=== PATIENT | female | born 1960 | race Caucasian/White ===

== ENCOUNTER → 2017-03-06 | Outpatient (CLI) | payer MEDICARE ==
[~2017-03-06] MED LIST: AMITRIPTYLINE 225 MG PO; ASPIRIN 81MG TA81 MG PO; CLINORIL GENER200 MG PO; CYCLOBENZAPRINE10 MG PO; LEVOTHYROXIN0.025 MG PO; LISINOPRIL HCTZ1 TAB PO; LORTAB 500 MG-11 TAB PO; METOPROLOL100 MG PO; PERCOCET 5/3251 EACH PO; PHENERGAN 12.12.5 M1 PO; PRAMIPEXOLE DI0.5 MG PO; RESTORIL30 MG PO; SIMVASTATIN80 MG PO; VALIUM10 MG PO; VITAMIN D1000 IU PO
== END ==
LOC: RAD 09:00
DX: Z12.31 Encounter for screening mammogram for malignant neoplasm of breast (principal)
CPT/HCPCS: G0202

== ENCOUNTER → 2017-03-25 | Outpatient (CLI) | payer MEDICARE ==
--- NOTE | 2017-03-25 16:54 | RADIOLOGY REPORT PS360 ---
CHEST(2 VIEWS-NOT PORTABLE) HISTORY: TOBACCO USE,CHRONIC BRONCHITIS ORDERING PHYSICIAN: Ivan Brower MD PATIENT AGE: 56 years COMPARISON: 01/31/2015 FINDINGS: Prominent pectus deformity is present with increased density along both right and left heart border. No evidence of CHF. No lobar consolidation or collapse. No effusions. No acute bony anomalies. IMPRESSION: Pectus deformity, no acute finding with no interval change
== END ==
LOC: RT 15:24
DX: M16.11 Unilateral primary osteoarthritis, right hip (principal); J41.1 Mucopurulent chronic bronchitis; Z72.0 Tobacco use; Z01.818 Encounter for other preprocedural examination